=== PATIENT | female | born 1960 | race Caucasian/White ===

== ENCOUNTER 2017-05-30 05:43 | Inpatient (IN) | payer OTHER ==
[2017-05-30] MEDS ORDERED: LIDOCAINE 2% (SDV) 5 ML INJ (07:00)
[2017-05-30] MEDS ORDERED: CEFAZOLIN 1 GM INJ (07:00)
[2017-05-30] MEDS ORDERED: DEXAMETHASONE 4 MG/ML 1 ML INJ (07:00)
[2017-05-30] MEDS ORDERED: SUGAMMADEX SODIUM 200 MG/2 ML VIAL IV (07:00)
[2017-05-30] MEDS ORDERED: METOPROLOL 5 MG INJ (07:00)
[2017-05-30] MEDS ORDERED: ACETAMINOPHEN 1000 MG/100 ML IVPB (07:00)
[2017-05-30] MEDS ORDERED: MIDAZOLAM 1 MG/ML 2 ML INJ (07:09)
[2017-05-30] MEDS ORDERED: FENTAnyl 50 MCG/ML VIAL ×2 (07:09→08:24)
[2017-05-30] MEDS ORDERED: PROPOFOL 20 ML (07:10)
[2017-05-30] MEDS ORDERED: SUCCINYLCHOLINE CHLORIDE 100 MG/5 ML SYG IV (07:10)
[2017-05-30] MEDS ORDERED: ROCURONIUM 50 MG INJ (07:10)
[2017-05-30] MEDS ORDERED: BUPIVACAINE 0.5% (SDV) 30 ML INJ (07:10)
[2017-05-30] MEDS ORDERED: ONDANSETRON 4 MG INJ (07:11)
[2017-05-30] MEDS ORDERED: METOCLOPRAMIDE 10 MG INJ (07:11)
[2017-05-30] MEDS: LACTATED RINGER'S 1,000 ML IV ×4 (07:51→22:19)
[2017-05-30] MEDS ORDERED: HYDROmorphONE 0.5 MG/0.5 ML SYG IV (08:00)
[2017-05-30] MEDS ORDERED: BUPIVACAINE LIPOSOME/PF 266 MG/20 ML VIAL INFIL (08:00)
[2017-05-30] MEDS ORDERED: ONDANSETRON 4 MG INJ IV (08:00)
[2017-05-30] MEDS ORDERED: DIPHENHYDRAMINE 50 MG INJ IV ×2 (08:00→10:00)
[2017-05-30] MEDS ORDERED: HYDROCODONE/APAP (10/325) TAB PO (08:00)
[2017-05-30] MEDS ORDERED: hydrALAzine 20 MG INJ (08:21)
[2017-05-30] MEDS: GENTAMICIN 80 MG INJ (08:23)
[2017-05-30] MEDS: POLYMYXIN/BACITRACIN 1L IRRIG (08:26)
[2017-05-30] MEDS ORDERED: METOCLOPRAMIDE 10 MG INJ IV (10:00)
[2017-05-30] MEDS ORDERED: HALOPERIDOL 5 MG INJ IV (10:00)
[2017-05-30] MEDS ORDERED: PROCHLORPERAZINE 10 MG INJ IV (10:00)
[2017-05-30] MEDS ORDERED: FENTAnyl 50 MCG/ML VIAL IV ×2 (10:00)
[2017-05-30] MEDS ORDERED: HYDROmorphONE (0.2 MG/ML) 10ML SYG IV (10:00)
[2017-05-30] MEDS: MEPERIDINE 25 MG INJ IV (10:57)
[2017-05-30] MEDS: HYDROmorphONE (0.2 MG/ML) 10ML SYG IV ×4 (10:57→11:22)
[2017-05-30] MEDS: ONDANSETRON 4 MG INJ IV (10:57)
[2017-05-30] MEDS: LORAZEPAM 2 MG INJ IV (11:32)
[2017-05-31] MEDS: ACETAMINOPHEN 325 MG TAB PO (12:14)
== END 2017-05-31 12:20 | disposition home or self-care (01) | DRG 581 ==
LOC: REC 05:43 → MS1 11:58
PROC: 0HRU0JZ Replacement of Left Breast with Synthetic Substitute, Open Approach (ICD-10-PCS; principal; 2017-05-30 07:30)
PROC: 07B60ZX Excision of Left Axillary Lymphatic, Open Approach, Diagnostic (ICD-10-PCS; 2017-05-30 07:30)
DX: C50.412 Malignant neoplasm of upper-outer quadrant of left female breast (principal)
CPT/HCPCS: 88307

== ENCOUNTER 2018-07-02 10:05 | Day surgery (SDC) | payer OTHER ==
[2018-07-02] MEDS ORDERED: LIDOCAINE 4% SOLUTION 50 ML BTL (11:40)
[2018-07-02] MEDS ORDERED: MIDAZOLAM 1 MG/ML 2 ML INJ ×2 (12:38→12:39)
[2018-07-02] MEDS ORDERED: FENTAnyl 50 MCG/ML VIAL (12:38)
== END 2018-07-02 15:31 | disposition home or self-care (01) ==
LOC: GIL 10:05
DX: K29.60 Other gastritis without bleeding (principal); K31.84 Gastroparesis
CPT/HCPCS: 43239; 88305; 88312; 88313